=== PATIENT | male | born 1935 | race Two or more races ===

== ENCOUNTER 2019-10-28 11:08 | Emergency (ER) | payer OTHER ==
[~2019-10-28] VITALS: Ht 177.8 cm; Wt 79.4 kg
[2019-10-28] MEDS ORDERED: PANTOPRAZOLE 40mg/50ML NS AE 50 ML IV ONE (12:00)
[2019-10-28 12:13] LABS: Basophils # (auto) 0 10 ^3/uL (0-0.2); Basophils % (auto) 0.2 % (0.0-2.0); Eosinophils # (auto) 0.2 10 ^3/uL (0-0.8); Hemoglobin 12.7 g/dL (13.5-17.5); Lymphocytes # (auto) 0.9 10 ^3/uL (0.4-5.4); Monocytes # (auto) 0.5 10 ^3/uL (0-1.3)
[2019-10-28 12:14] LABS: Eosinophils % (auto) 1.6 % (0.0-7.0); Hematocrit 39.3 % (41.0-53.0); Lymphocytes % (auto) 6.5 % (10.0-50.0); Mean Corpuscular Hgb Conc. 32.3 g/dL (32.0-36.0); Mean Corpuscular Volume 77.2 fL (80.0-100.0); Monocytes % (auto) 3.6 % (0.0-12.0); Neutrophils # (auto) 12.1 10 ^3/uL (1.6-8.6); Neutrophils % (auto) 88.1 % (37.0-80.0); Nucleated Red Blood Cells % 0.1 %; Platelet Count (auto) 227 10^3/uL (140-450); Red Blood Cells 5.09 10^6/uL (4.5-5.90); Red Cell Distribution Width 19.6 % (11.8-14.3); White Blood Cell 13.7 10^3/uL (4.4-10.8)
[2019-10-28 12:25] LABS: INR 1.04 (0.9-1.15); Partial Thromboplastin Time 22.5 sec (23.0-31.2)
[2019-10-28 12:29] LABS: Albumin 3.1 g/dL (3.4-5.0); Anion Gap 4 (5-15); Blood Urea Nitrogen 19 mg/dL (7-18); Calcium 8.2 mg/dL (8.5-10.1); Carbon Dioxide 27 mmol/L (21-32); Chloride 104 mmol/L (98-107); Potassium 4.5 mmol/L (3.5-5.1); Sodium 135 mmol/L (136-145)
[2019-10-28 12:36] LABS: Alanine Aminotransferase 18 U/L (16-61); Alkaline Phosphatase 75 U/L (45-117); Aspartate Aminotransferase 4 U/L (15-37); BUN/Creatinine Ratio 18.8; Bilirubin, Total 0.3 mg/dL (0.2-1.0); GFR African American 90 mL/min; GFR Non-African American 75 mL/min; Total Protein 6.9 g/dL (6.4-8.2)
[2019-10-28 12:41] LABS: Glucose 416 mg/dL (74-106)
[2019-10-28] MEDS ORDERED: SODIUM CHLORIDE 0.9% 2,000 ML IV ONE (13:00)
[2019-10-28] MEDS ORDERED: SODIUM CHLORIDE 0.9% 1,000 ML IV ONE (14:15)
[2019-10-28] MEDS ORDERED: InsuLIN REG 1unit/0.01ml Soln (100units/ml) SC ONE (15:30)
[2019-10-28] MEDS ORDERED: cefTRIAXone 1GM/50ML D5W 50 ML IV ONE (15:45)
[2019-10-28] MEDS ORDERED: cefTRIAXone SOD 1,000 MG VL ONE (15:47)
[2019-10-28 16:59] LABS: Urine Bacteria NONE SEEN /hpf (None Seen); Urine Blood Negative /uL (Negative); Urine Hyaline Cast FEW /lpf (0 - 2); Urine Specific Gravity 1.015 (1.001-1.035); Urine WBC <1 /hpf (0 - 3)
[2019-10-28 22:14] LABS: Eosinophils # (auto) 0.2 10 ^3/uL (0-0.8); Hematocrit 34.3 % (41.0-53.0); Lymphocytes # (auto) 1.1 10 ^3/uL (0.4-5.4); Monocytes # (auto) 0.6 10 ^3/uL (0-1.3); Nucleated Red Blood Cells % 0.1 %; White Blood Cell 8.9 10^3/uL (4.4-10.8)
[2019-10-28 22:16] LABS: Basophils # (auto) 0.1 10 ^3/uL (0-0.2); Basophils % (auto) 0.7 % (0.0-2.0); Eosinophils % (auto) 2.6 % (0.0-7.0); Hemoglobin 11.2 g/dL (13.5-17.5); Lymphocytes % (auto) 12.8 % (10.0-50.0); Mean Corpuscular Hemoglobin 25.4 pg (28.0-32.0); Mean Corpuscular Hgb Conc. 32.6 g/dL (32.0-36.0); Monocytes % (auto) 6.3 % (0.0-12.0); Neutrophils # (auto) 6.9 10 ^3/uL (1.6-8.6); Neutrophils % (auto) 77.6 % (37.0-80.0); Platelet Count (auto) 198 10^3/uL (140-450); Red Cell Distribution Width 19.4 % (11.8-14.3)
[2019-10-29 02:19] VITALS: BP 146/57
== END 2019-10-29 02:48 | disposition short-term general hospital (02) ==
LOC: EDBD 11:08 → ER 11:08
DX: K92.2 Gastrointestinal hemorrhage, unspecified (principal); E11.65 Type 2 diabetes mellitus with hyperglycemia; J18.1 Lobar pneumonia, unspecified organism; D50.0 Iron deficiency anemia secondary to blood loss (chronic); I63.9 Cerebral infarction, unspecified; Z20.828 Contact with and (suspected) exposure to other viral communicable diseases; E78.5 Hyperlipidemia, unspecified; K21.9 Gastro-esophageal reflux disease without esophagitis; Z86.73 Personal history of transient ischemic attack (TIA), and cerebral infarction without residual deficits
CPT/HCPCS: 36415; 70450; 71045; 74176; 80053; 81001; 82962; 83605; 83615; 83690; 83735; 84484; 85025; 85610; 85730; 86850; 86900; 86901; 87040; 87426; 93005; 96365; 96366; 96368; 96372; 99291; J0696; J1815; J7030; 96367

== ENCOUNTER 2024-04-19 20:32 | Inpatient (IN) | payer OTHER ==
[~2024-04-19] VITALS: Ht 167.6 cm; Wt 72.7 kg
--- NOTE | 2024-04-19 21:40 | ED.PDOC ---
GI ASSESSMENT HPI Comments 88 year old male brought in by EMS presents to the ED with a chief complaint of rectal bleeding onset today (04/19/24) around 09:00. Per EMS, family noticed bright red blood in patient's diaper since this morning around 09:00. Per EMS, family is A&O x0, only alert to person. Patient states he is not experiencing any pain. Upon EMS arrival BP was 80/50, 400 mL NS was given and BP improved to 132/78. PMHx of CVA, CAD, DM, HLD, TIA, GERD. No other symptoms or modifying factors present at this time. Chief Complaint: GI Bleed Time Seen by MD: 21:25 Reviewed Notes: Medications, Allergies Allergies: Coded Allergies: NO KNOWN ALLERGIES (Unverified , 10/28/19) Information Source: Emergency Med Personnel Mode of Arrival: EMS Timing: Hours Duration: Since onset Prehospital treatment: IVF (400 mL) Quality: None Severity: Moderate Recent: None Pain Location: None Modifying Factors: Nothing Associated sign and symptoms: Blood in Stool Past Medical History PAST MEDICAL HISTORY: CAD, CVA, DM, GERD, High Lipids, TIA Surgical History: Unobtainable Family History Family History: Unobtainable Social History Smoker: Unobtainable Alcohol: Unobtainable Drugs: Unobtainable Lives In: Home Constitutional: denies: chills, diaphoresis, fatigue, fever, malaise, sweats, weakness, others EENTM: denies: blurred vision, double vision, ear bleeding, ear discharge, ear drainage, ear pain, ear ringing, eye pain, eye redness, hearing loss, mouth p ain, mouth swelling, nasal discharge, nose bleeding, nose congestion, nose pain, photophobia, tearing, throat pain, throat swelling, voice changes, others Respiratory: denies: cough, hemoptysis, orthopnea, SOB at rest, shortness of br eath, SOB with excertion, stridor, wheezing, others Cardiovascular: denies: chest pain, dizzy spells, diaphoresis, Dyspnea on exertion, edema, irregular heart beat, left arm pain, lightheadedness, palpitations, PND, syncope, others Gastrointestinal: reports: rectal bleeding; denies: abdomen distended, abdominal pain, blood streaked bowels, constipated, diarrhea, dysphagia, difficulty swallowing, hematemesis, melena, nausea, poor appetite, poor fluid intake, rectal pain, vomiting, others Genitourinary: denies: burning, dysuria, flank pain, frequency, hematuria, incontinence, penile discharge, penile sore, pain, testicle pain, testicle swelling, urgency, others Neurological: denies: dizziness, fainting, headache, left sided numbness, left sided weakness, numbness, paresthesia, pre-existing deficit, right sided numbness, right sided weakness, seizure, speech problems, tingling, tremors, weakness, others Musculoskeletal: denies: back pain, gout, joint pain, joint swelling, muscle pain, muscle stiffness, neck pain, others Integumetry: denies: bruises, change in color, change in hair/nails, dryness, laceration, lesions, lumps, rash, wounds, others Allergic/Immunocompromised: denies: Difficulty Healing, Frequent Infections, Hives, Itching, others Hematologic/Lymphatic: denies: anemia, blood clots, easy bleeding, easy bruisin g, swollen glands, others Endocrine: denies: excessive hunger, excessive sweating, excessive thirst, excessive urination, flushing, intolerance to cold, intolerance to heat, unexplained weight gain, unexplained weight loss, others Psychiatric: denies: anxiety, bipolar disorder, depression, hopeless, panic disorder, schizophrenia, sleepless, suicidal, others All Other Systems: Reviewed and Negative Physical Exam General Appearance: No Apparent Distress, Normal HEENT: Normal ENT Inspection, Pharynx Normal, TMs Normal Neck: Full Range of Motion, Non-Tender, Normal, Normal Inspection Respiratory: Chest Non-Tender, Lungs Clear, No Accessory Muscle Use, No Respiratory Distress, Normal Breath Sounds Cardiovascular: No Edema, No JVD, No Murmur, No Gallop, Normal Peripheral Pulses, Regular Rate/Rhythm Breast Exam: Deferred Gastrointestinal: No Organomegaly, Non Tender, No Pulsatile Mass, Normal Bowel Sounds, Soft Genitalia: Deferred Pelvic: Deferred Rectal: Deferred Extremities: No calf tenderness, Normal capillary refill, Normal inspection, Normal range of motion, Non-tender, No pedal edema Musculoskeletal : Apperance: Normal Neurologic: Alert, form raiser II-XII nml as Tested, No Motor Deficits, Normal Affect, Normal Mood, No Sensory Deficits Cerebellar Function: Normal Reflexes: Normal Skin: Dry, Normal Color, Warm Lymphatic: No Adenopathy Was a procedure done? Was a procedure done?: No GI differential Dx Differential Diagnosis: Other (GI bleed) X-Ray, Labs, Meds, VS Vital Signs Date Time Temp Pulse Resp B/P (MAP) Pulse Ox O2 Delivery O2 Flow Rate FiO2 04/20/24 02:15 97.7 88 16 106/52 97.7 04/20/24 02:00 97.8 90 16 115/54 97.8 04/20/24 01:47 97.8 93 16 117/56 (76) 97 97.8 04/20/24 00:40 97.8 93 16 117/56 97.8 04/19/24 23:55 97.8 94 14 99/42 97.8 04/19/24 23:40 97.5 94 16 91/49 97.5 04/19/24 22:11 97 18 93 Room Air* 0 21 04/19/24 22:11 97.8 97 20 66/34 (45) 93 97.8 04/19/24 21:37 94 04/19/24 20:37 97.5 88 18 132/78 (96) 96 Lab Test 04/19/24 21:58 Range/Units White Blood Count 15.3 H 4.4-10.8 10^3/uL Red Blood Count 2.71 L 4.5-5.90 10^6/uL Hemoglobin 7.1 L 13.5-17.5 g/dL Hematocrit 22.1 L 41.0-53.0 % Mean Corpuscular Volume 81.5 80.0-100.0 fL Mean Corpuscular Hemoglobin 26.2 L 28.0-32.0 pg Mean Corpuscular Hemoglobin Concent 32.1 32.0-36.0 g/dL Red Cell Distribution Width 15.0 H 11.8-14.3 % Platelet Count 221 140-450 10^3/uL Mean Platelet Volume 8.8 6.9-10.8 fL Neutrophils (%) (Auto) 86.1 H 37.0-80.0 % Lymphocytes (%) (Auto) 10.0 10.0-50.0 % Monocytes (%) (Auto) 3.5 0.0-12.0 % Eosinophils (%) (Auto) 0.2 0.0-7.0 % Basophils (%) (Auto) 0.2 0.0-2.0 % Neutrophils # (Auto) 13.2 H 1.6-8.6 10 ^3/uL Lymphocytes # (Auto) 1.5 0.4-5.4 10 ^3/uL Monocytes # (Auto) 0.5 0-1.3 10 ^3/uL Eosinophils # (Auto) 0 0-0.8 10 ^3/uL Basophils # (Auto) 0 0-0.2 10 ^3/uL Nucleated Red Blood Cells 0.0 % Prothrombin Time 12.2 H 9.3-11.8 sec Prothrombin Time INR 1.17 H 0.9-1.15 Activated Partial Thromboplast Time 25.8 24.5-34.5 SEC Sodium Level 141 136-145 mmol/L Potassium Level 4.0 3.5-5.1 mmol/L Chloride Level 106 98-107 mmol/L Carbon Dioxide Level 24 20-31 mmol/L Anion Gap 11 5-15 Blood Urea Nitrogen 28 H 9-23 mg/dL Creatinine 0.82 0.700-1.30 mg/dL Glomerular Filtration Rate Calc 84 >90 mL/min BUN/Creatinine Ratio 34.1 H 10.0-20.0 Serum Glucose 276 H 74-106 mg/dL Calcium Level 8.6 L 8.7-10.4 mg/dL Current Medications Medications (Trade) Dose Ordered Sig/Alvin Route Start Time Stop Time Status Last Admin Sodium Chloride 1,000 ml @ 1,000 mls/hr Q1H ONCE IV 04/19/24 22:30 04/19/24 23:29 DC 04/19/24 22:33 Pantoprazole Sodium (Protonix) 80 mg ONCE ONCE IV 04/19/24 22:30 04/19/24 22:31 DC 04/19/24 22:31 Calcium Gluconate/ Sodium Chloride 50 ml @ 100 mls/hr Q30M IV 04/19/24 23:30 04/20/24 00:29 DC 04/20/24 01:08 Time of 1ST Reevaluation: 21:55 Reevaluation 1ST: Unchanged Patient Education/Counseling: Diagnosis, Treatment, Prognosis Family Education/Counseling: No Family Present Departure 1 Departure Time of Disposition: 02:24 ([place] AUthorization to Admit here: [id number] has bright red blood per rectum he is not stable for transfer. Transfusing patient will have GI see him and admit patient for further workup) Impression: Primary Impression: Bright red blood per rectum Additional Impression: Symptomatic anemia Disposition: ADMITTED INPATIENT Admit to: [facility] Condition: Guarded Critical Care Note Critical Care Time?: Yes Critical care comment: Hypotension number red blood per rectum Authorized and Performed by: Qasim Martines MD Total critical care time: Approximately 34 minutes Due to a high probability of clinically significant, life threatening deterioration, the patient required my highest level of preparedness to intervene emergently and I personally spent this critical care time directly and personally managing the patient. This critical care time included obtaining a history; examining the patient; pulse oximetry; ordering and review of studies; arranging urgent treatment with development of a management plan; evaluation of patient's response to treatment; frequent reassessment; and, discussions with other providers. This critical care time was performed to assess and manage the high probability of imminent, life-threatening deterioration that could result in multi-organ failure. It was exclusive of separately billable procedures and treating other patients and teaching time. Please see my other sections and the rest of the note for further information on patient assessment and treatment. Stability Stability form required: No I personally scribed for QASIM MARTINES MD ([email or web address]) on 04/19/24 at 21:40. Electronically submitted by Eneida Ivey ([email or web address]). I personally scribed for QASIM MARTINES MD ([email or web address]) on 04/19/24 at 22:14. Electronically submitted by Eneida Ivey ([email or web address]). QASIM MARTINES MD Apr 19, 2024 21:40
[2024-04-19 22:11] VITALS: PULSE 97; RESP 18; O2SAT 93
[2024-04-19 22:20] LABS: Basophils # (auto) 0 10 ^3/uL (0-0.2); Basophils % (auto) 0.2 % (0.0-2.0); Eosinophils # (auto) 0 10 ^3/uL (0-0.8); Eosinophils % (auto) 0.2 % (0.0-7.0); Hemoglobin 7.1 g/dL (13.5-17.5); White Blood Cell 15.3 10^3/uL (4.4-10.8)
[2024-04-19 22:21] LABS: Hematocrit 22.1 % (41.0-53.0); Lymphocytes # (auto) 1.5 10 ^3/uL (0.4-5.4); Mean Corpuscular Hemoglobin 26.2 pg (28.0-32.0); Mean Corpuscular Hgb Conc. 32.1 g/dL (32.0-36.0); Mean Corpuscular Volume 81.5 fL (80.0-100.0); Monocytes # (auto) 0.5 10 ^3/uL (0-1.3); Monocytes % (auto) 3.5 % (0.0-12.0); Neutrophils # (auto) 13.2 10 ^3/uL (1.6-8.6); Neutrophils % (auto) 86.1 % (37.0-80.0); Platelet Count (auto) 221 10^3/uL (140-450); Red Blood Cells 2.71 10^6/uL (4.5-5.90)
[2024-04-19 22:31] LABS: Chloride 106 mmol/L (98-107); Sodium 141 mmol/L (136-145)
[2024-04-19] MEDS: PANTOPRAZOLE 40 MG/10 ML VIAL INJ IV ONE (22:31)
[2024-04-19 22:32] LABS: Anion Gap 11 (5-15); Carbon Dioxide 24 mmol/L (20-31)
[2024-04-19] MEDS: SODIUM CHLORIDE 0.9% 1,000 ML IV ONE (22:33)
[2024-04-19 22:35] LABS: INR 1.17 (0.9-1.15); Partial Thromboplastin Time 25.8 SEC (24.5-34.5); Prothrombin Time 12.2 sec (9.3-11.8)
[2024-04-19 22:37] LABS: BUN/Creatinine Ratio 34.1 (10.0-20.0)
[2024-04-19 22:53] LABS: Blood Urea Nitrogen 28 mg/dL (9-23); Calcium 8.6 mg/dL (8.7-10.4); Glucose 276 mg/dL (74-106)
[2024-04-19 23:40] VITALS: BP 91/49; PULSE 94; RESP 16; TEMP 97.5
[2024-04-19 23:55] VITALS: BP 99/42; PULSE 94; RESP 14; TEMP 97.8
[2024-04-20] VITALS (8 sets, daily range): BP systolic 106–138; BP diastolic 47–65; PULSE 84–95; RESP 14–20; TEMP 97.4–98.9; O2SAT 97
--- NOTE | 2024-04-20 00:13 | DVH ---
CHEST RADIOGRAPH Indication: sob Technique: Single frontal view of the chest was obtained Comparison: CHEST PORTABLE on DOS: 10/28/19 FINDINGS: Lines and Tubes: None Lungs: Clear Pleura: No effusion. No pneumothorax. Cardiomediastinal contours: Unremarkable Bones: Unremarkable IMPRESSION: Clear lungs.
[2024-04-20] MEDS: CALCIUM GLUC 1,000mg/50ml-NS 50 ML IV SCH (00:46)
[2024-04-20] MEDS ORDERED: ONDANSETRON HCL 4 MG/2 ML VIAL IV PRN (05:15)
[2024-04-20] MEDS ORDERED: MORPHINE SULFATE INJ 2 MG/ml SYRG IV PRN (05:15)
[2024-04-20] MEDS ORDERED: DEXTROSE (50%) 50ML SYRG IV PRN (05:15)
[2024-04-20] MEDS ORDERED: NITROGLYCERIN 0.4 MG SL TAB SL PRN (05:15)
--- NOTE | 2024-04-20 05:15 | ECG ---
[facility] Test Date: 2024-04-19 Test Time: 21:37:26 Pat Name: CHINO STEWART Department: ER Room: [address] [place] [address] Gender: M [employer]: ER : 1935 Requested By: QASIM VALADEZ Order Number: [id number] Reading MD: Jonathan Iniguez Measurements Intervals [place] Rate: 94 P: 267 MO: 208 QRS: 28 QRSD: 123 T: 244 QT: 380 QTc: 476 Interpretive Statements Sinus or ectopic atrial rhythm Borderline prolonged MO interval Left bundle branch block Electronically Signed On 04-20-2024 22:26:06 PST by Jonathan Iniguez Please click the below link to view image of tracing.
--- NOTE | 2024-04-20 05:27 | DVHHP2 ---
History of Present Illness Reason for Visit: GI bleed History of Present Illness 88-year-old male presents for evaluation of GI bleed. Patient with a history of CVA alert oriented x1. Per ED records and personnel patient has a one day history of bloody stools. No reports of abdominal pain. No chest pain or palpitations. Past Medical History Diabetes mellitus, GERD, dyslipidemia, CVA, CAD Past Surgical History Unknown Family History Unknown Smoke: No ALCOHOL: none Drugs: None Lives: with Family Review of Systems Review of Systems Review of systems are limited due to the patient's altered mental status. Allergies: Coded Allergies: Penicillins (Verified Allergy, Unknown, 04/20/24) Medications Current Medications Medications Dose Ordered Sig/Alvin Route Start Time Stop Time Status Last Admin Dose Admin Pantoprazole Sodium 50 ml @ 10 mls/hr Q5H IV 04/20/24 05:15 Sodium Chloride 1,000 ml @ 80 mls/hr [id number] IV 04/20/24 05:15 Ondansetron HCl 4 mg Q4HP PRN IV 04/20/24 05:15 Nitroglycerin 0.4 mg Q5MINP PRN SL 04/20/24 05:15 Morphine Sulfate 2 mg Q30M PRN IV 04/20/24 05:15 Diagnostic Test (Pha) 1 strip Q6HR 04/20/24 06:00 Insulin Human Regular Q6HR SC 04/20/24 06:00 Dextrose 50 ml UD PRN IV 04/20/24 05:15 Exam Vital Signs Vital Signs Date Time Temp Pulse Resp B/P (MAP) Pulse Ox O2 Delivery O2 Flow Rate FiO2 04/20/24 05:00 86 16 124/53 (76) 97 04/20/24 04:50 97.4 97.4 04/19/24 22:11 Room Air* 0 21 Exam Gen: 88-year-old male in mild distress Skin: Warm, dry, normal color and texture, no rash. HEENT: Normocephalic atraumatic, mucous membranes moist and pink. Neck: Cervical and supraclavicular nodes normal without enlargement, trachea is midline, thyroid gland is normal without masses. Pulmonary: Clear to auscultation and percussion bilaterally. Cardiac: Regular rate and rhythm. No murmur Abdomen: Soft, nontender, nondistended, bowel sounds present all 4 quadrants, no guarding, no rigidity, no organomegaly. Extremities: No cyanosis, clubbing, no edema Neuro: Lethargic Labs/Xrays ORDERING PHYSICIAN: QASIM VALADEZ MD PROCEDURE(s): CXRP - CHEST PORTABLE REASON: sob ORDER NUMBER(s): [id number], ACCESSION NUMBER(s): [id number] CHEST RADIOGRAPH Indication: sob Technique: Single frontal view of the chest was obtained Comparison: CHEST PORTABLE on DOS: 10/28/19 FINDINGS: Lines and Tubes: None Lungs: Clear Pleura: No effusion. No pneumothorax. Cardiomediastinal contours: Unremarkable Bones: Unremarkable IMPRESSION: Clear lungs. Labs Test 04/19/24 21:58 Range/Units White Blood Count 15.3 H 4.4-10.8 10^3/uL Red Blood Count 2.71 L 4.5-5.90 10^6/uL Hemoglobin 7.1 L 13.5-17.5 g/dL Hematocrit 22.1 L 41.0-53.0 % Mean Corpuscular Volume 81.5 80.0-100.0 fL Mean Corpuscular Hemoglobin 26.2 L 28.0-32.0 pg Mean Corpuscular Hemoglobin Concent 32.1 32.0-36.0 g/dL Red Cell Distribution Width 15.0 H 11.8-14.3 % Platelet Count 221 140-450 10^3/uL Mean Platelet Volume 8.8 6.9-10.8 fL Neutrophils (%) (Auto) 86.1 H 37.0-80.0 % Lymphocytes (%) (Auto) 10.0 10.0-50.0 % Monocytes (%) (Auto) 3.5 0.0-12.0 % Eosinophils (%) (Auto) 0.2 0.0-7.0 % Basophils (%) (Auto) 0.2 0.0-2.0 % Neutrophils # (Auto) 13.2 H 1.6-8.6 10 ^3/uL Lymphocytes # (Auto) 1.5 0.4-5.4 10 ^3/uL Monocytes # (Auto) 0.5 0-1.3 10 ^3/uL Eosinophils # (Auto) 0 0-0.8 10 ^3/uL Basophils # (Auto) 0 0-0.2 10 ^3/uL Nucleated Red Blood Cells 0.0 % Prothrombin Time 12.2 H 9.3-11.8 sec Prothrombin Time INR 1.17 H 0.9-1.15 Activated Partial Thromboplast Time 25.8 24.5-34.5 SEC Sodium Level 141 136-145 mmol/L Potassium Level 4.0 3.5-5.1 mmol/L Chloride Level 106 98-107 mmol/L Carbon Dioxide Level 24 20-31 mmol/L Anion Gap 11 5-15 Blood Urea Nitrogen 28 H 9-23 mg/dL Creatinine 0.82 0.700-1.30 mg/dL Glomerular Filtration Rate Calc 84 >90 mL/min BUN/Creatinine Ratio 34.1 H 10.0-20.0 Serum Glucose 276 H 74-106 mg/dL Calcium Level 8.6 L 8.7-10.4 mg/dL Assessment/Plan Assessment/Plan Assessment GI bleed Uncontrolled diabetes mellitus History of CVA Plan Admit the patient to telemetry to the hospitalist Transfuse 2 units of packed red cells Protonix drip GI consult Maintenance IV fluids NPO Continue treatment per orders. Plan discussed with: Other My Orders Orders - ASHLEE ALEXANDER Procedure Category Date Status Time Pantoprazole PHA 04/20/24 In Process 40mg/50ml Ns Ae 05:15 * Gi Dvh Alum Mixer CONS 04/20/24 Transmitted 05:04 Sodium Chloride 0.9% PHA 04/20/24 In Process 05:15 Stool Occult Blood LAB 04/20/24 Logged 05:04 Hemoglobin & LAB 04/20/24 Logged Hematocrit 06:00 Admit ADMIT 04/20/24 Transmitted 05:04 Ondansetron Hcl PHA 04/20/24 In Process (Zofran) 05:15 Complete Blood Count LAB 04/21/24 Verified 04:00 Comprehensive LAB 04/21/24 Verified Metabolic Panel 04:00 Npo (Nothing By DIET 04/20/24 Transmitted Mouth) Diet Breakfast Condition: Fair ENDY 04/20/24 In Process 05:04 Bedrest With Bathroom ENDY 04/20/24 In Process Privileg 05:04 Nitroglycerin PHA 04/20/24 In Process Sublingual (Ntrostat 05:15 Morphine Sulfate PHA 04/20/24 In Process Injection 05:15 Stat Ekg For Chest [facility] 04/20/24 In Process Pain 05:04 Notify Of Changes [facility] 04/20/24 In Process From Base 05:04 Criminal Intelligence Specialist For [facility] 04/20/24 In Process 24 Hours 05:04 Emergency Dysrhythmia [facility] 04/20/24 In Process Protocol 05:04 Rhythm Strips Once [facility] 04/20/24 In Process Every Shift 05:04 Oxygen By Nasal RT 04/20/24 Transmitted Cannula 05:04 Glucose Blood [facility] 04/20/24 In Process (Accu-Chek Comfort 06:00 Insulin R (Human) [facility] 04/20/24 In Process (Insulin R) 06:00 Dextrose 50% Syringe [facility] 04/20/24 In Process 05:15 Date of Service: Apr 20, 2024 Billing Provider: ASHLEE ALEXANDER Common Visit Codes: [id number] INP/OBS CARE (HIGH) ASHLEE ALEXANDER Apr 20, 2024 05:27
[2024-04-20] MEDS: ACCU-CHEK COMFORT CURVE STRIP VI SCH (06:25)
[2024-04-20] MEDS: InsuLIN REG 1unit/0.01ml Soln (100units/ml) SC SCH (06:28)
[2024-04-20] MEDS: SODIUM CHLORIDE 0.9% 1,000 ML IV SCH (06:30)
[2024-04-20] MEDS: PANTOPRAZOLE 40mg/50ML NS AE 50 ML IV SCH (06:31)
[2024-04-20 07:37] LABS: Hematocrit 28.7 % (41.0-53.0); Hemoglobin 9.8 g/dL (13.5-17.5)
--- NOTE | 2024-04-20 12:29 | DVHCONRES ---
Date Seen: Apr 20, 2024 Resident Creating Document: ELIJAH TANG RESIDENT Referring Physician KIMBERLY Myers Reason for Consultation GI bleed History of Present Illness This is 88-year-old male with past medical history of CVA, CAD, type 2 diabetes mellitus, hyperlipidemia, TIA, GERD presented to the ED with a chief complaint of per rectal bleeding 1 time prior to this admission. Per EMS, family noticed bright red blood in the patient's diaper since this morning. The patient denies any per rectal bleeding or having any bowel movement since admission. The patient was seen and examined on the bedside. He is alert oriented x3 . The patient's complaint of abdominal pain and no other active complaint at this time. Allergies: Coded Allergies: Penicillins (Verified Allergy, Unknown, 04/20/24) Current Medications Current Medications Medications (Trade) Dose Ordered Sig/Alvin Route PRN Reason Start Time Stop Time Status Last Admin Calcium Gluconate/ Sodium Chloride 50 ml @ 100 mls/hr Q30M IV 04/19/24 23:30 04/20/24 00:29 DC 04/20/24 01:08 Pantoprazole Sodium 50 ml @ 10 mls/hr Q5H IV 04/20/24 05:15 04/20/24 10:10 Sodium Chloride 1,000 ml @ 80 mls/hr [id number] IV 04/20/24 05:15 04/20/24 06:30 Ondansetron HCl (Zofran) 4 mg Q4HP PRN IV NAUSEA / VOMITING 04/20/24 05:15 Nitroglycerin (Ntrostat Sublingual) 0.4 mg Q5MINP PRN SL FOR CHEST PAIN 04/20/24 05:15 Morphine Sulfate 2 mg Q30M PRN IV FOR CHEST PAIN 04/20/24 05:15 Diagnostic Test (Pha) (Accu-Chek Comfort Curve T) 1 strip Q6HR 04/20/24 06:00 04/20/24 12:10 Insulin Human Regular (InsuLIN R) Q6HR SC 04/20/24 06:00 04/20/24 06:28 Dextrose 50 ml UD PRN IV Blood Sugar LESS THAN 60 04/20/24 05:15 Vital Signs Vital Signs Date Time Temp Pulse Resp B/P (MAP) Pulse Ox O2 Delivery O2 Flow Rate FiO2 04/20/24 07:50 98.2 95 14 97/56 (70) 97 98.2 04/20/24 07:50 Room Air* 0 21 Physical Exam Physical examination: General Appearance: Alert, Oriented X3, Cooperative, No acute distress HEENT: Atraumatic, PERRLA, EOMI, Mucous membrane moist/pink Respiratory: Clear to auscultation, Normal air movement Cardiovascular: Regular rate, Normal S1, Normal S2, No murmurs, no chest wall tenderness Abdominal: Normal bowel sounds, Soft, No tenderness, No hepatospenomegaly, No masses Extremities: No clubbing, No cyanosis, No edema, Normal pulses, No tenderness/swelling Skin: No rashes, No breakdown, No significant lesion Neuro: Normal speech, Strength at 5/5 X4 ext, Normal tone, Sensation intact, Cranial nerves 3-12 NL, Reflexes 2+ Psych/Mental Status: Mental status NL, Mood NL Labs/Diagnostic Data Labs Test 04/20/24 12:08 04/20/24 07:09 04/19/24 21:58 Range/Units POC Glucose 86 70-106 mg/dl Hemoglobin 9.8 #L 13.5-17.5 g/dL Hematocrit 28.7 #L 41.0-53.0 % White Blood Count 15.3 H 4.4-10.8 10^3/uL Red Blood Count 2.71 L 4.5-5.90 10^6/uL Mean Corpuscular Volume 81.5 80.0-100.0 fL Mean Corpuscular Hemoglobin 26.2 L 28.0-32.0 pg Mean Corpuscular Hemoglobin Concent 32.1 32.0-36.0 g/dL Red Cell Distribution Width 15.0 H 11.8-14.3 % Platelet Count 221 140-450 10^3/uL Mean Platelet Volume 8.8 6.9-10.8 fL Neutrophils (%) (Auto) 86.1 H 37.0-80.0 % Lymphocytes (%) (Auto) 10.0 10.0-50.0 % Monocytes (%) (Auto) 3.5 0.0-12.0 % Eosinophils (%) (Auto) 0.2 0.0-7.0 % Basophils (%) (Auto) 0.2 0.0-2.0 % Neutrophils # (Auto) 13.2 H 1.6-8.6 10 ^3/uL Lymphocytes # (Auto) 1.5 0.4-5.4 10 ^3/uL Monocytes # (Auto) 0.5 0-1.3 10 ^3/uL Eosinophils # (Auto) 0 0-0.8 10 ^3/uL Basophils # (Auto) 0 0-0.2 10 ^3/uL Nucleated Red Blood Cells 0.0 % Prothrombin Time 12.2 H 9.3-11.8 sec Prothrombin Time INR 1.17 H 0.9-1.15 Activated Partial Thromboplast Time 25.8 24.5-34.5 SEC Sodium Level 141 136-145 mmol/L Potassium Level 4.0 3.5-5.1 mmol/L Chloride Level 106 98-107 mmol/L Carbon Dioxide Level 24 20-31 mmol/L Anion Gap 11 5-15 Blood Urea Nitrogen 28 H 9-23 mg/dL Creatinine 0.82 0.700-1.30 mg/dL Glomerular Filtration Rate Calc 84 >90 mL/min BUN/Creatinine Ratio 34.1 H 10.0-20.0 Serum Glucose 276 H 74-106 mg/dL Calcium Level 8.6 L 8.7-10.4 mg/dL Assessment Assessment: # Lower GI bleeding # Obstipation with stercoral colitis # 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 q.i.d. - continue IV antibiotic and other management as per primary - H&H stable after 2 units of PRBC given - pending stool occult blood - monitor H&H - Hold anticoagulant and avoid aspirin - GI standby for performing any acute intervention if needed. - we will follow this patient Plan discussed with Dr. Diehl Plan discussed with: Patient, ELIJAH Mishra RESIDENT Apr 20, 2024 12:29
--- NOTE | 2024-04-20 13:21 | DVH ---
Exam: CT CT AB PEL WO CON-NO ORAL OR IV History: lower GI bleeding Comparison Study: 10/28/2019 TECHNIQUE: Multidetector CT of the abdomen and pelvis without contrast. Axial, coronal and sagittal multiplanar reformats were obtained from the axial data set by the technologist. Radiation Dose Information: CT Dose: CTDI volume is 9.2 mGy. Dose-length product is 460.4 mGy*cm FINDINGS: Bilateral dependent atelectasis. Partially visualized heart is unremarkable. Heavy atherosclerotic c alcification of the partially visualized coronary arteries. Liver, spleen, gallbladder, pancreas and left adrenal glands unremarkable. 2.7 cm right adrenal nodul e measuring up to -12 Hounsfield units. Punctate nonobstructive bilateral renal calculi. Otherwise kidneys, ureters and urinary bladder unrem arkable. Prostate measures 2.7 x 5.8 x 3.8 cm. Stomach is unremarkable. Small bowel loops unremarkable.Appendix is not definitely visualized. Colon ic diverticulosis without diverticulitis. Moderate amount of fecal material within the colon. Rectal wall thickening with associated Mild fat stranding. No evidence of intraperitoneal free air or free fluid. Minimal mesenteric edema. No evidence of aortic aneurysm. Moderate to heavy atherosclerotic calcification of the aorta and bila teral iliacs. No significant lymphadenopathy. Mild soft tissue edema. There is fluid within the distal inguinal canal. Diffuse demineralization. Mu ltilevel anterior bridging osteophytes. Bilateral L5 chronic pars defect. IMPRESSION: Constipation with distal rectal wall thickening and mild perirectal fat stranding. Correlate for suki rcoral colitis with neoplasm not completely excluded. 2.7 cm right adrenal nodule which may represent an adenoma or myelolipoma. Colonic diverticulosis without diverticulitis.
[2024-04-20 13:27] LABS: Albumin 3.3 g/dL (3.2-4.8); Alkaline Phosphatase 58 U/L (46-116); Anion Gap 8 (5-15); Bilirubin, Total 0.4 mg/dL (0.2-1.0); Carbon Dioxide 24 mmol/L (20-31); Glucose 94 mg/dL (74-106); Potassium 4.1 mmol/L (3.5-5.1); Sodium 143 mmol/L (136-145)
[2024-04-20 13:28] LABS: Alanine Aminotransferase < 9 U/L (7-40); Aspartate Aminotransferase 11 U/L (13-40); Blood Urea Nitrogen 24 mg/dL (9-23); Calcium 8.5 mg/dL (8.7-10.4); Chloride 111 mmol/L (98-107); Total Protein 5.3 g/dL (5.7-8.2)
[2024-04-20 13:47] LABS: Lipase 23 U/L (12-53)
--- NOTE | 2024-04-20 15:56 | DVHPN2 ---
Subjective Patient denies any symptoms. Reviewed: Care Plan, H&P, Labs Changes from previous H/P or p: No Changes General: Per HPI Objective Vitals Vital Signs Date Time Temp Pulse Resp B/P (MAP) Pulse Ox O2 Delivery O2 Flow Rate FiO2 04/20/24 12:00 75 14 147/86 (106) 96 04/20/24 07:50 98.2 98.2 04/20/24 07:50 Room Air* 0 21 Intake/Output Intake and Output 04/20/24 07:00 Intake Total 1300 ml Output Total 0 ml Balance 1300 ml Intake Oral 0 ml IV Total 100 ml Blood Product 1200 ml Output Urine Total 0 ml General Appearance: Alert, Cooperative, Other (X1) HEENT: Atraumatic, PERRLA Lungs: Clear to auscultation, Normal air movement Cardiovascular: Normal S1, Normal S2 Genitourinary: No Apparent Abnormalities Musculoskeletal: Other (Left hemiparesis) Skin: Dry, Intact Psych/Mental Status: Mental status NL, Mood NL Medications Current Medications Medications Dose Ordered Sig/Alvin Route Start Time Stop Time Status Last Admin Dose Admin Pantoprazole Sodium 50 ml @ 10 mls/hr Q5H IV 04/20/24 05:15 04/20/24 15:18 10 MLS/HR Sodium Chloride 1,000 ml @ 80 mls/hr [id number] IV 04/20/24 05:15 04/20/24 06:30 80 MLS/HR Ondansetron HCl 4 mg Q4HP PRN IV 04/20/24 05:15 Nitroglycerin 0.4 mg Q5MINP PRN SL 04/20/24 05:15 Morphine Sulfate 2 mg Q30M PRN IV 04/20/24 05:15 Diagnostic Test (Pha) 1 strip Q6HR 04/20/24 06:00 04/20/24 12:10 1 STRIP Insulin Human Regular Q6HR SC 04/20/24 06:00 04/20/24 06:28 6 UNITS Dextrose 50 ml UD PRN IV 04/20/24 05:15 Metronidazole 100 ml @ 100 mls/hr Q8HR IV 04/20/24 22:00 UNV Ceftriaxone Sodium 50 ml @ 100 mls/hr DAILY@09 IV 04/21/24 09:00 UNV Laboratory Results Laboratory Tests 04/19/24 21:58 04/20/24 07:09 04/20/24 12:48 Chemistry Test 04/19/24 21:58 04/20/24 12:48 Calcium Level 8.6 mg/dL (8.7-10.4) L 8.5 mg/dL (8.7-10.4) L Albumin 3.3 g/dL (3.2-4.8) Total Protein 5.3 g/dL (5.7-8.2) L Coagulation Test 04/19/24 21:58 Prothrombin Time 12.2 sec (9.3-11.8) H Prothrombin Time INR 1.17 (0.9-1.15) H Activated Partial Thromboplast Time 25.8 SEC (24.5-34.5) Lipid panel Test 04/20/24 12:48 Lipase 23 U/L (12-53) LFT Test 04/20/24 12:48 Alanine Aminotransferase (ALT) < 9 U/L (7-40) Alkaline Phosphatase 58 U/L (46-116) Aspartate Amino Transferase (AST) 11 U/L (13-40) L Total Bilirubin 0.4 mg/dL (0.2-1.0) Labs and/or images reviewed: Labs reviewed by me, Image(s) reviewed by me Assessment/Plan Assessment/Plan Impression: -lower GI bleed -questionable colitis -history of CVA with left hemiparesis -diabetes mellitus -dyslipidemia -history of CAD Plan: -patient received 2 units PRBCs. Patient hemodynamically stable. No further BMs noted. -continue Protonix drip -GI consultation -CEA -clear liquid diet -hold anticoagulants, antiplatelets -repeat labs in a.m. -patient stable to transfer to [facility]. Long discussion made with the patient's son/caregiver. All questions answered. Total time spent with patient discussing and formulating plan of care: 35 minutes. Total time spent with patient and family regarding advance care plannin minutes. This medical document was created using an electronic medical record system with [employer] dictation system. Although this document has been carefully reviewed, there may still be some phonetic and typographical errors. These areas are purely typographical due to imperfections of the software programs, and do not reflect any compromise in the patient's medical care. Plan discussed with: Patient, Son, Other (RN) My Orders Orders - RADHA GEE [employer]RO[employer] CONSULTANT Procedure Category Date Status Time Carcinoembryonic LAB 04/20/24 Logged Antigen 15:17 Metronidazole PHA 04/20/24 Logged 500mg/100ml (Flagyl 22:00 Ceftriaxone 1gm/50ml PHA 04/21/24 Logged D5w (Rocephin) 09:00 Stool Occult Blood LAB 04/20/24 Logged 15:17 Stool Bacterial ONEYDA 04/20/24 Logged Culture 15:17 * Flue Lining Dipper CONS 04/20/24 Verified Consult Date of Service: Apr 20, 2024 Billing Provider: RADHA GEE [employer]RO[employer] CONSULTANT Common Visit Codes: 65315-[id number] INP/OBS CARE(HIGH) RADHA GEE NP Apr 20, 2024 15:56
[2024-04-20] MEDS: SUCRALFATE 1 GM/10 ML ORAL SUSP PO SCH (17:43)
[2024-04-20] MEDS: HYDROcodone-ACET 5/325MG TAB PO PRN (19:39)
[2024-04-20] MEDS: metroNIDAZOLE 500MG/100ML 100 ML IV SCH (22:08)
[2024-04-21 04:40] LABS: Basophils # (auto) 0 10 ^3/uL (0-0.2); Basophils % (auto) 0.3 % (0.0-2.0); Eosinophils # (auto) 0 10 ^3/uL (0-0.8); Eosinophils % (auto) 0.1 % (0.0-7.0); Hemoglobin 8.7 g/dL (13.5-17.5); Lymphocytes # (auto) 0.8 10 ^3/uL (0.4-5.4); Lymphocytes % (auto) 7.5 % (10.0-50.0); Mean Corpuscular Hemoglobin 28.4 pg (28.0-32.0); Mean Corpuscular Hgb Conc. 33.5 g/dL (32.0-36.0); Mean Corpuscular Volume 84.9 fL (80.0-100.0); Monocytes # (auto) 0.4 10 ^3/uL (0-1.3); Monocytes % (auto) 3.4 % (0.0-12.0); Neutrophils # (auto) 9.7 10 ^3/uL (1.6-8.6); Neutrophils % (auto) 88.7 % (37.0-80.0); Platelet Count (auto) 121 10^3/uL (140-450); Red Blood Cells 3.06 10^6/uL (4.5-5.90); Red Cell Distribution Width 15.8 % (11.8-14.3); White Blood Cell 10.9 10^3/uL (4.4-10.8)
[2024-04-21 04:58] LABS: Alkaline Phosphatase 48 U/L (46-116); Anion Gap 10 (5-15); Aspartate Aminotransferase 13 U/L (13-40); BUN/Creatinine Ratio 19.3 (10.0-20.0); Bilirubin, Total 0.5 mg/dL (0.2-1.0); Blood Urea Nitrogen 11 mg/dL (9-23); Carbon Dioxide 20 mmol/L (20-31); Sodium 143 mmol/L (136-145)
[2024-04-21 05:24] LABS: Alanine Aminotransferase < 9 U/L (7-40); Albumin 2.9 g/dL (3.2-4.8); Calcium 7.8 mg/dL (8.7-10.4); Chloride 113 mmol/L (98-107); Glucose 137 mg/dL (74-106); Potassium 3.4 mmol/L (3.5-5.1); Total Protein 4.8 g/dL (5.7-8.2)
[2024-04-21 07:30] VITALS: PULSE 93; RESP 12; O2SAT 96
[2024-04-21] MEDS: cefTRIAXone 1GM/50ML D5W 50 ML IV SCH (09:00)
[2024-04-21] MEDS: LACTULOSE 20Gm/30ML SOLN PO ONE (09:18)
[2024-04-21] MEDS: POTASSIUM CHL 20 Meq TABLET PO ONE (09:18)
--- NOTE | 2024-04-21 11:34 | DVHDS2 ---
Discharge Summary Date of Admission Apr 20, 2024 at 05:04 Date of Discharge: Apr 21, 2024 Admitting Diagnosis GI bleed Labs/Diagnostic Data: Laboratory Results Test 04/21/24 05:47 04/21/24 04:20 04/20/24 17:29 04/20/24 12:48 POC Glucose 140 mg/dl (70-106) White Blood Count 10.9 10^3/uL (4.4-10.8) Red Blood Count 3.06 10^6/uL (4.5-5.90) Hemoglobin 8.7 g/dL (13.5-17.5) Hematocrit 26.0 % (41.0-53.0) Mean Corpuscular Volume 84.9 fL (80.0-100.0) Mean Corpuscular Hemoglobin 28.4 pg (28.0-32.0) Mean Corpuscular Hemoglobin Concent 33.5 g/dL (32.0-36.0) Red Cell Distribution Width 15.8 % (11.8-14.3) Platelet Count 121 10^3/uL (140-450) Mean Platelet Volume 8.7 fL (6.9-10.8) Neutrophils (%) (Auto) 88.7 % (37.0-80.0) Lymphocytes (%) (Auto) 7.5 % (10.0-50.0) Monocytes (%) (Auto) 3.4 % (0.0-12.0) Eosinophils (%) (Auto) 0.1 % (0.0-7.0) Basophils (%) (Auto) 0.3 % (0.0-2.0) Neutrophils # (Auto) 9.7 10 ^3/uL (1.6-8.6) Lymphocytes # (Auto) 0.8 10 ^3/uL (0.4-5.4) Monocytes # (Auto) 0.4 10 ^3/uL (0-1.3) Eosinophils # (Auto) 0 10 ^3/uL (0-0.8) Basophils # (Auto) 0 10 ^3/uL (0-0.2) Nucleated Red Blood Cells 0.0 % Sodium Level 143 mmol/L (136-145) Potassium Level 3.4 mmol/L (3.5-5.1) Chloride Level 113 mmol/L (98-107) Carbon Dioxide Level 20 mmol/L (20-31) Anion Gap 10 (5-15) Blood Urea Nitrogen 11 mg/dL (9-23) Creatinine 0.57 mg/dL (0.700-1.30) Glomerular Filtration Rate Calc 94 mL/min (>90) BUN/Creatinine Ratio 19.3 (10.0-20.0) Serum Glucose 137 mg/dL (74-106) Calcium Level 7.8 mg/dL (8.7-10.4) Total Bilirubin 0.5 mg/dL (0.2-1.0) Aspartate Amino Transferase (AST) 13 U/L (13-40) Alanine Aminotransferase (ALT) < 9 U/L (7-40) Alkaline Phosphatase 48 U/L (46-116) Total Protein 4.8 g/dL (5.7-8.2) Albumin 2.9 g/dL (3.2-4.8) Carcinoembryonic Antigen 1.51 ng/mL (<=5.0) Lipase 23 U/L (12-53) Test 04/19/24 21:58 Prothrombin Time 12.2 sec (9.3-11.8) Prothrombin Time INR 1.17 (0.9-1.15) Activated Partial Thromboplast Time 25.8 SEC (24.5-34.5) Other Laboratory Tests 04/21/24 04:20 Brief Hx & Hospital Course: History of Present Illness 88-year-old male presents for evaluation of GI bleed. Patient with a history of CVA alert oriented x1. Per ED records and personnel patient has a one day history of bloody stools. No reports of abdominal pain. No chest pain or palpitations. Course of hospitalization: Patient was given 2 units of PRBCs. H&H is now 8.7 and 26. Patient's leukocytosis is also improving. GI consultation has been obtained with diagnosis of colitis provided, with evidence also noted on CT scan of the abdomen and pelvis. Patient will be continued on IV antibiotic therapy with Flagyl and Rocephin. Protonix drip will be stopped, with PPI to be given IV twice a day. Patient was currently on clear liquid diet which will continue. Patient will be given potassium replete. Long discussion was made with the patient and son yesterday evening, for which the patient was now stable to be transferred to [facility], which was the son's wishes. All questions answered. Physical examination General: Alert and Oriented x1 Eyes: EOMI. Anicteric. HENT: Moist mucous membranes. Lungs: Clear to auscultation bilaterally. No accessory muscle use. Cardiovascular: Regular rate and rhythm. No murmur. No JVD. Abdomen: Soft, non-tender and non-distended. No palpable masses. Extremities: No edema. Non-tender. Skin: No rashes or lesions. Warm. Neurologic: CN II-XII grossly intact, but not individually tested. Left hemiparesis, aphasia Psychiatric: Cooperative. Appropriate mood and affect. Total time spent with patient discussing and formulating plan of care: 35 minutes. This medical document was created using an electronic medical record system with [employer] dictation system. Although this document has been carefully reviewed, there may still be some phonetic and typographical errors. These areas are purely typographical due to imperfections of the software programs, and do not reflect any compromise in the patient's medical care. Consults/Reason for consult Gastroenterology: GI bleed Condition at Discharge: Guarded Final Diagnosis/Problems List Acute colitis Lower GI bleed Secondary diagnosis: -history of CVA with left hemiparesis -diabetes mellitus -dyslipidemia -history of CAD Discharge Disposition: Acute Care Facility Discharge Instruct/Medications Diet: See Comment Diet comment: Full liquid diet Activity: No Restrictions, As Tolerated Follow Up/Referral: Per accepting provider Medications: Refer to medication reconciliation form 36 Discharge Statement: "Patient was advised to return to the ER or call 911 if any headaches, dizziness, shortness of breath, chest pain, abdominal pain, bleeding, fevers, or worsening of medical condition. Patient was counseled about treatment plan, medications, possible side effects, patientverbalized understanding. All questions were answered to the best of my ability. This discharge took greater then 30 minutes in planning, reviewing documentation, counseling the patient, and discussing with other team members." ASSESSMENT ASSESSMENT Assessment Acute colitis Lower GI bleed Date of Service: Apr 21, 2024 Billing Provider: RADHA GEE NP Common Visit Codes: 41933-EWU/OBS DISCH DAY >30min RADHA GEE NP Apr 21, 2024 11:34
[2024-04-21] MEDS: POTASSIUM CHLORIDE 20 MEQ, LIDOCAINE 1% (LOCAL ANESTH.) 2 ML in SODIUM CHL 0.9% 100 ML IV ONE (11:50)
--- NOTE | 2024-04-21 13:05 | DVHPN2 ---
Progress Note Date Seen: Apr 21, 2024 Resident Creating Document: ELIJAH TANG RESIDENT Medical Necessity Reason Pt with a Central, PICC or Fol: No Subjective Review of Systems Patient was seen and examined on the bedside. He is alert oriented x3. Complaint of abdominal pain and no other active complaint. Objective vital signs Vital Sign Date Time Temp Pulse Resp B/P (MAP) Pulse Ox O2 Delivery O2 Flow Rate FiO2 04/21/24 11:54 78 18 138/64 (88) 100 04/21/24 07:30 Nasal Cannula* 2 28 04/20/24 19:35 98.0 98.0 Total Intake and Output 04/20/24 04/20/24 04/21/24 15:00 23:00 07:00 Intake Total 390 ml 920 ml Balance 390 ml 920 ml medications Current Medications Medications Dose Ordered Sig/Alvin Route Start Time Stop Time Status Last Admin Dose Admin Pantoprazole Sodium 50 ml @ 10 mls/hr Q5H IV 04/20/24 05:15 04/21/24 06:16 10 MLS/HR Sodium Chloride 1,000 ml @ 80 mls/hr [id number] IV 04/20/24 05:15 04/21/24 06:15 80 MLS/HR Ondansetron HCl 4 mg Q4HP PRN IV 04/20/24 05:15 Nitroglycerin 0.4 mg Q5MINP PRN SL 04/20/24 05:15 Morphine Sulfate 2 mg Q30M PRN IV 04/20/24 05:15 Diagnostic Test (Pha) 1 strip Q6HR 04/20/24 06:00 04/21/24 05:48 1 STRIP Insulin Human Regular Q6HR SC 04/20/24 06:00 04/21/24 05:51 2 UNITS Dextrose 50 ml UD PRN IV 04/20/24 05:15 Metronidazole 100 ml @ 100 mls/hr Q8HR IV 04/20/24 22:00 04/21/24 05:30 100 MLS/HR Ceftriaxone Sodium 50 ml @ 100 mls/hr DAILY@09 IV 04/21/24 09:00 Sucralfate 1 gm QID@0600,1130,1700,2200 PO 04/20/24 17:00 04/21/24 11:30 1 GM Acetaminophen/ Hydrocodone Bitart 1 tab Q6HPRN PRN PO 04/20/24 18:45 04/20/24 19:39 1 TAB Examination Physical examination: General Appearance: Alert, Oriented X3, Cooperative, No acute distress HEENT: Atraumatic, PERRLA, EOMI, Mucous membrane moist/pink Respiratory: Clear to auscultation, Normal air movement Cardiovascular: Regular rate, Normal S1, Normal S2, No murmurs, no chest wall tenderness Abdominal: Normal bowel sounds, Soft, No tenderness, No hepatospenomegaly, No masses Extremities: No clubbing, No cyanosis, No edema, Normal pulses, No tenderness/swelling Skin: No rashes, No breakdown, No significant lesion Neuro: Normal speech, Strength at 5/5 X4 ext, Normal tone, Sensation intact, Cranial nerves 3-12 NL, Reflexes 2+ Psych/Mental Status: Mental status NL, Mood NL laboratory and microbiology Laboratory Tests 04/21/24 04:20 Test 04/21/24 04:20 Range/Units Serum Glucose 137 H 74-106 mg/dL Labs and/or images reviewed: Labs reviewed by me, Image(s) reviewed by me Problem List/Assessment/Plan Problem List/Assessment/Plan Assessment: # Lower GI bleeding # Obstipation with stercoral colitis # 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 q.i.d. - continue IV antibiotic and other management as per primary - H&H stable after 2 units of PRBC given - pending stool occult blood - monitor H&H - Hold anticoagulant and avoid aspirin - Patient is stable for transfer to [facility] - Recommended outpatient colonoscopy Plan discussed with Dr. Diehl Plan discussed with: Patient, Other My Orders My Orders Orders - ELIJAH TANG Procedure Category Date Status Time Sucralfate Susp PHA 04/20/24 In Process (Carafate Susp) 17:00 CC Plasma Assessment Blood Product Administration S: [id number] ELIJAH TANG Apr 21, 2024 13:05
[2024-04-21 18:45] VITALS: PULSE 80; RESP 17; O2SAT 100
[2024-04-21 20:00] VITALS: PULSE 86; PULSE 93; RESP 18; O2SAT 93
[2024-04-21 21:00] VITALS: BP 143/59; PULSE 93; RESP 18; TEMP 97.9; O2SAT 95
[2024-04-22] VITALS (8 sets, daily range): BP systolic 110–149; BP diastolic 44–78; PULSE 73–91; RESP 17–19; TEMP 97.6–99.1; O2SAT 94–100
[2024-04-22 12:23] LABS: Basophils # (auto) 0 10 ^3/uL (0-0.2); Basophils % (auto) 0.2 % (0.0-2.0); Eosinophils # (auto) 0 10 ^3/uL (0-0.8); Eosinophils % (auto) 0.6 % (0.0-7.0); Hematocrit 22.8 % (41.0-53.0); Hemoglobin 7.8 g/dL (13.5-17.5); Lymphocytes # (auto) 0.6 10 ^3/uL (0.4-5.4); Lymphocytes % (auto) 10.2 % (10.0-50.0); Mean Corpuscular Hemoglobin 29.2 pg (28.0-32.0); Mean Corpuscular Hgb Conc. 34.3 g/dL (32.0-36.0); Mean Corpuscular Volume 84.9 fL (80.0-100.0); Monocytes # (auto) 0.4 10 ^3/uL (0-1.3); Monocytes % (auto) 5.9 % (0.0-12.0); Neutrophils # (auto) 5.2 10 ^3/uL (1.6-8.6); Neutrophils % (auto) 83.1 % (37.0-80.0); Nucleated Red Blood Cells % 0.1 %; Platelet Count (auto) 111 10^3/uL (140-450); Red Blood Cells 2.69 10^6/uL (4.5-5.90); Red Cell Distribution Width 16.2 % (11.8-14.3); White Blood Cell 6.3 10^3/uL (4.4-10.8)
[2024-04-22 12:52] LABS: Alkaline Phosphatase 48 U/L (46-116); Anion Gap 7 (5-15); Aspartate Aminotransferase 15 U/L (13-40); BUN/Creatinine Ratio 15.2 (10.0-20.0); Bilirubin, Total 0.3 mg/dL (0.2-1.0); Carbon Dioxide 25 mmol/L (20-31); Sodium 140 mmol/L (136-145)
[2024-04-22 12:58] LABS: Alanine Aminotransferase < 9 U/L (7-40); Blood Urea Nitrogen 7 mg/dL (9-23); Calcium 8.1 mg/dL (8.7-10.4); Chloride 108 mmol/L (98-107); Glucose 130 mg/dL (74-106)
[2024-04-22] MEDS: POTASSIUM CHLORIDE 60 MEQ, LIDOCAINE 1% (LOCAL ANESTH.) 6 ML in SODIUM CHL 0.9% 500 ML IV ONE (17:15)
--- NOTE | 2024-04-22 18:10 | DVHDS2 ---
Discharge Summary Date of Admission Apr 20, 2024 at 05:04 Date of Discharge: Apr 21, 2024 Labs/Diagnostic Data: Laboratory Results Test 04/22/24 17:42 04/22/24 11:40 04/20/24 17:29 04/20/24 12:48 POC Glucose 134 mg/dl (70-106) White Blood Count 6.3 10^3/uL (4.4-10.8) Red Blood Count 2.69 10^6/uL (4.5-5.90) Hemoglobin 7.8 g/dL (13.5-17.5) Hematocrit 22.8 % (41.0-53.0) Mean Corpuscular Volume 84.9 fL (80.0-100.0) Mean Corpuscular Hemoglobin 29.2 pg (28.0-32.0) Mean Corpuscular Hemoglobin Concent 34.3 g/dL (32.0-36.0) Red Cell Distribution Width 16.2 % (11.8-14.3) Platelet Count 111 10^3/uL (140-450) Mean Platelet Volume 8.7 fL (6.9-10.8) Neutrophils (%) (Auto) 83.1 % (37.0-80.0) Lymphocytes (%) (Auto) 10.2 % (10.0-50.0) Monocytes (%) (Auto) 5.9 % (0.0-12.0) Eosinophils (%) (Auto) 0.6 % (0.0-7.0) Basophils (%) (Auto) 0.2 % (0.0-2.0) Neutrophils # (Auto) 5.2 10 ^3/uL (1.6-8.6) Lymphocytes # (Auto) 0.6 10 ^3/uL (0.4-5.4) Monocytes # (Auto) 0.4 10 ^3/uL (0-1.3) Eosinophils # (Auto) 0 10 ^3/uL (0-0.8) Basophils # (Auto) 0 10 ^3/uL (0-0.2) Nucleated Red Blood Cells 0.1 % Sodium Level 140 mmol/L (136-145) Potassium Level 3.0 mmol/L (3.5-5.1) Chloride Level 108 mmol/L (98-107) Carbon Dioxide Level 25 mmol/L (20-31) Anion Gap 7 (5-15) Blood Urea Nitrogen 7 mg/dL (9-23) Creatinine 0.46 mg/dL (0.700-1.30) Glomerular Filtration Rate Calc 100 mL/min (>90) BUN/Creatinine Ratio 15.2 (10.0-20.0) Serum Glucose 130 mg/dL (74-106) Calcium Level 8.1 mg/dL (8.7-10.4) Total Bilirubin 0.3 mg/dL (0.2-1.0) Aspartate Amino Transferase (AST) 15 U/L (13-40) Alanine Aminotransferase (ALT) < 9 U/L (7-40) Alkaline Phosphatase 48 U/L (46-116) Total Protein 5.0 g/dL (5.7-8.2) Albumin 3.0 g/dL (3.2-4.8) Carcinoembryonic Antigen 1.51 ng/mL (<=5.0) Lipase 23 U/L (12-53) Test 04/19/24 21:58 Prothrombin Time 12.2 sec (9.3-11.8) Prothrombin Time INR 1.17 (0.9-1.15) Activated Partial Thromboplast Time 25.8 SEC (24.5-34.5) Other Laboratory Tests 04/22/24 11:40 Brief Hx & Hospital Course: 88-year-old male presents for evaluation of GI bleed. Patient with a history of CVA alert oriented x1. Per ED records and personnel patient has a one day history of bloody stools. No reports of abdominal pain. No chest pain or palpitations. Course of hospitalization: Patient was given 2 units of PRBCs. H&H is now 8.7 and 26. Patient's leukocytosis is also improving. GI consultation has been obtained with diagnosis of colitis provided, with evidence also noted on CT scan of the abdomen and pelvis. Patient will be continued on IV antibiotic therapy with Flagyl and Rocephin. Protonix drip will be stopped, with PPI to be given IV twice a day. Patient was currently on clear liquid diet which will continue. Patient will be given potassium replete. Long discussion was made with the patient and son yesterday evening, for which the patient was now stable to be transferred to [facility], which was the son's wishes. All questions answered. Physical examination General: Alert and Oriented x1 Eyes: EOMI. Anicteric. HENT: Moist mucous membranes. Lungs: Clear to auscultation bilaterally. No accessory muscle use. Cardiovascular: Regular rate and rhythm. No murmur. No JVD. Abdomen: Soft, non-tender and non-distended. No palpable masses. Extremities: No edema. Non-tender. Skin: No rashes or lesions. Warm. Neurologic: CN II-XII grossly intact, but not individually tested. Left hemiparesis, aphasia Psychiatric: Cooperative. Appropriate mood and affect. Total time spent with patient discussing and formulating plan of care: 35 minutes. This medical document was created using an electronic medical record system with [employer] dictation system. Although this document has been carefully reviewed, there may still be some phonetic and typographical errors. These areas are purely typographical due to imperfections of the software programs, and do not reflect any compromise in the patient's medical care. Condition at Discharge: Good Final Diagnosis/Problems List Acute colitis Lower GI bleed Secondary diagnosis: -history of CVA with left hemiparesis -diabetes mellitus -dyslipidemia -history of CAD -history of CVA with left hemiparesis -diabetes mellitus -dyslipidemia -history of CAD Discharge Disposition: Acute Care Facility Discharge Instruct/Medications Diet: See Comment Diet comment: Full liquid diet Activity: No Restrictions, As Tolerated Follow Up/Referral: Per accepting provider Medications: Refer to medication reconciliation form Discharge Statement: "Patient was advised to return to the ER or call 911 if any headaches, dizziness, shortness of breath, chest pain, abdominal pain, bleeding, fevers, or worsening of medical condition. Patient was counseled about treatment plan, medications, possible side effects, patientverbalized understanding. All questions were answered to the best of my ability. This discharge took greater then 30 minutes in planning, reviewing documentation, counseling the patient, and discussing with other team members." ASSESSMENT ASSESSMENT Assessment Acute colitisLower GI bleedSecondary diagnosis:-history of CVA with left hemiparesis -diabetes [id number] of CAD Date of Service: Apr 22, 2024 Billing Provider: MARCELLA ROE MD Common Visit Codes: 14095-MEY/OBS DISCH DAY >30min MARCELLA ROE MD Apr 22, 2024 18:10
== END 2024-04-22 20:49 | disposition short-term general hospital (02) | DRG 391 ==
LOC: EDSEX 20:32 → EDBD 20:32 → ER 20:32 → OVERFLOW 04-20 05:04 → TELE-EAST 04-21 18:35
PROVIDERS: ADMIT Nurse Practitioner Acute Care; ATTEND Nurse Practitioner Acute Care
PROC: 30233N1 Transfusion of Nonautologous Red Blood Cells into Peripheral Vein, Percutaneous Approach (ICD-10-PCS; principal; 2024-04-20)
DX: K52.89 Other specified noninfective gastroenteritis and colitis (principal); K57.31 Diverticulosis of large intestine without perforation or abscess with bleeding; D68.9 Coagulation defect, unspecified; I69.354 Hemiplegia and hemiparesis following cerebral infarction affecting left non-dominant side; K59.09 Other constipation; D64.9 Anemia, unspecified; E78.5 Hyperlipidemia, unspecified; F17.200 Nicotine dependence, unspecified, uncomplicated; K21.9 Gastro-esophageal reflux disease without esophagitis; E11.9 Type 2 diabetes mellitus without complications; I25.10 Atherosclerotic heart disease of native coronary artery without angina pectoris; Z88.0 Allergy status to penicillin
CPT/HCPCS: 36415; 71045; 74176; 80048; 80053; 82378; 82962; 83690; 85014; 85018; 85025; 85610; 85730; 86850; 86900; 86901; 86920; 92610; 93005; 96361; 96365; 96375; 99291; G0378; J1815; J2003; J2470; J3490